=== PATIENT | male | born 1945 | race Caucasian/White ===

== ENCOUNTER → 2020-04-13 | Outpatient (CLI) | payer MEDICARE ==
[~2020-04-13] MED LIST: APIX5TAB PO; METO25TA35 PO
== END | disposition home or self-care (01) ==
LOC: CFH 10:00
PROVIDERS: ATTEND Internal Medicine Cardiovascular Disease
DX: I08.3 Combined rheumatic disorders of mitral, aortic and tricuspid valves (principal); Z85.828 Personal history of other malignant neoplasm of skin; Z79.01 Long term (current) use of anticoagulants
CPT/HCPCS: 93306

== ENCOUNTER 2021-04-23 10:33 | Day surgery (SDC) | payer MEDICARE, OTHER ==
[2021-04-23] MEDS ORDERED: SODIUM CHLORIDE FLUSH 10ML SYR IVF SCH (11:00)
[2021-04-23] MEDS ORDERED: NYST1000 PO (11:17)
[2021-04-23] MEDS ORDERED: LEVO25TA4 PO (11:17)
[2021-04-23] MEDS ORDERED: ROSU5TAB PO (11:17)
[2021-04-23 11:22] LABS: ANION GAP 7 mmol/L (5-15); CALCIUM 8.9 mg/dL (8.5-10.1); CHLORIDE 110 mmol/L (98-107); CREATININE 0.92 mg/dL (0.7-1.3)
[2021-04-23] MEDS ORDERED: PLEASE ENTER HEIGHT AND WEIGHT MC SCH (11:30)
[2021-04-23] MEDS ORDERED: METO25TA91 PO (12:57)
[2021-04-25] MEDS ORDERED: PROPOFOL 10 MG/ML, 20ML ONE (17:37)
== END 2021-04-23 13:47 | disposition home or self-care (01) ==
LOC: CACL 10:33
PROVIDERS: ATTEND Internal Medicine Cardiovascular Disease
DX: I48.92 Unspecified atrial flutter (principal); I48.0 Paroxysmal atrial fibrillation; I42.8 Other cardiomyopathies; E78.2 Mixed hyperlipidemia; Z91.011 Allergy to milk products; Z91.018 Allergy to other foods; Z79.899 Other long term (current) drug therapy; Z72.89 Other problems related to lifestyle; Z79.01 Long term (current) use of anticoagulants; Z98.890 Other specified postprocedural states
CPT/HCPCS: 36415; 80048; 92960; 93005; J2704

== ENCOUNTER 2021-05-31 06:28 | Day surgery (SDC) | payer MEDICARE, OTHER ==
[~2021-05-31 06:28] MED LIST changes: +LEVO25TA4 PO; +METO25TA91 PO; +NYST1000 PO; +ROSU5TAB PO
[2021-05-31 07:15] VITALS: BP 139/76
[2021-05-31] MEDS ORDERED: METO25TA91 PO (07:20)
[2021-05-31] MEDS ORDERED: FLEC100T PO (07:20)
[2021-05-31] MEDS ORDERED: DIGO125T85 PO (07:22)
[2021-05-31 07:34] LABS: BASOPHILS % (AUTO) 1 % (0-1); EOSINOPHILS % (AUTO) 6 % (1-7); LYMPHOCYTES % (AUTO) 21 % (22-44); MEAN CORPUSCULAR HEMOGLOBIN 29.4 pg (27.5-34.5); MEAN CORPUSCULAR HGB CONC 33.6 g/dL (33.2-36.2); MONOCYTES % (AUTO) 14 % (2-9); NEUTROPHILS % (AUTO) 58 % (42-75); PLATELET COUNT 202 x10^3/uL (130-400)
[2021-05-31 07:48] LABS: ANION GAP 4 mmol/L (5-15); CALCIUM 8.6 mg/dL (8.5-10.1); CHLORIDE 110 mmol/L (98-107); CREATININE 0.93 mg/dL (0.7-1.3)
[2021-05-31] MEDS ORDERED: PROPOFOL 10 MG/ML, 20ML ONE (11:21)
== END 2021-05-31 08:43 | disposition home or self-care (01) ==
LOC: CACL 06:28
PROVIDERS: ATTEND Internal Medicine Cardiovascular Disease
DX: I48.92 Unspecified atrial flutter (principal); I42.8 Other cardiomyopathies; E03.9 Hypothyroidism, unspecified; E78.2 Mixed hyperlipidemia; Z79.899 Other long term (current) drug therapy; Z79.01 Long term (current) use of anticoagulants; Z98.890 Other specified postprocedural states
CPT/HCPCS: 36415; 80048; 85025; 92960; 93005; J2704

== ENCOUNTER 2021-07-22 11:06 | Day surgery (SDC) | payer MEDICARE, OTHER ==
[~2021-07-22] VITALS: Ht 177.8 cm; Wt 62.3 kg
[~2021-07-22 11:06] MED LIST changes: +DIGO125T85 PO; +FLEC100T PO
[2021-07-22 11:50] VITALS: BP 129/59
[2021-07-22] MEDS ORDERED: SODIUM CHLORIDE 0.9% 1,000 ML IV SCH (12:00)
[2021-07-22 12:28] LABS: BASOPHILS % (AUTO) 1 % (0-1); EOSINOPHILS % (AUTO) 3 % (1-7); LYMPHOCYTES % (AUTO) 24 % (22-44); MEAN CORPUSCULAR HGB CONC 33.5 g/dL (33.2-36.2); MEAN PLATELET VOLUME 7.8 fL (7.4-10.4); MONOCYTES % (AUTO) 14 % (2-9); NEUTROPHILS % (AUTO) 59 % (42-75); PLATELET COUNT 213 x10^3/uL (130-400); RED BLOOD COUNT 5.41 x10^6/uL (4.38-5.82)
[2021-07-22 12:39] LABS: ALANINE AMINOTRANSFERASE 43 U/L (12-78); ALBUMIN 3.9 g/dL (3.4-5.0); ANION GAP 7 mmol/L (5-15); CALCIUM 8.9 mg/dL (8.5-10.1); CHLORIDE 106 mmol/L (98-107); CREATININE 0.96 mg/dL (0.7-1.3); INTERNATIONAL NORMALIZED RATIO 1.16 (0.93-1.1); PROTHROMBIN TIME 12.3 Seconds (9.6-11.5)
[2021-07-22 12:42] LABS: ALKALINE PHOSPHATASE 52 U/L (45-117); BILIRUBIN,TOTAL 0.8 mg/dL (0.2-1.0); TOTAL PROTEIN 7.4 g/dL (6.4-8.2)
[2021-07-22] MEDS ORDERED: LIDOCAINE 2%, 20ML ONE (12:47)
[2021-07-22] MEDS ORDERED: FENTANYL PF 250 MCG/5ML ONE (12:53)
[2021-07-22] MEDS ORDERED: EPHEDRINE 50 MG/ML, 1ML IVPush PRN (14:30)
[2021-07-22] MEDS ORDERED: ONDANSETRON 2MG/ML, 2ML IVPush PRN (14:30)
[2021-07-22] MEDS ORDERED: OXYcodone 5 MG/5 ML ORAL.SOL UDC PO PRN (14:30)
[2021-07-22] MEDS ORDERED: EPHEDRINE 50 MG/ML, 1ML IM PRN (14:30)
[2021-07-22] MEDS ORDERED: morphine SULFATE 10 MG/ML, 1ML IVPush PRN (14:30)
[2021-07-22] MEDS ORDERED: DIAZEPAM 5 MG/ML, 2ML IVPush PRN (14:30)
[2021-07-22] MEDS ORDERED: MEPERIDINE/PF 25MG/0.5ML IVPush PRN (14:30)
[2021-07-22] MEDS ORDERED: FENTANYL PF 100 MCG/2ML IV PRN (14:30)
[2021-07-22] MEDS ORDERED: ACETAMINOPHEN 325 MG TABLET PO PRN (14:30)
[2021-07-22] MEDS ORDERED: LABETALOL 5MG/ML, 20ML IV PRN (14:30)
[2021-07-22] MEDS ORDERED: PROMETHAZINE 25 MG/ML, 1ML IVPush PRN (14:30)
[2021-07-22] MEDS ORDERED: DIPHENHYDRAMINE 50 MG/ML, 1ML IVPush PRN (14:30)
[2021-07-22] MEDS ORDERED: ROCURONIUM 10MG/ML,5ML ONE (14:46)
[2021-07-22] MEDS ORDERED: PROPOFOL 10 MG/ML, 20ML ONE ×2 (14:46)
[2021-07-22] MEDS ORDERED: DEXAMETHASONE 4 MG/ML, 1ML ONE (14:46)
[2021-07-22] MEDS ORDERED: ONDANSETRON 2MG/ML, 2ML ONE (14:46)
[2021-07-22] MEDS ORDERED: SUCCINYLCHOLINE 20 MG/ML, 10ML ONE (14:46)
[2021-07-22] MEDS ORDERED: EPHEDRINE 50 MG/ML, 1ML ONE (15:19)
[2021-07-22 17:24] VITALS: BP 116/71
== END 2021-07-22 21:16 | disposition home or self-care (01) ==
LOC: CACL 11:06 → 5SO 17:18 → CACL 21:16
PROVIDERS: ATTEND Internal Medicine Clinical Cardiac Electrophysiology
DX: I48.92 Unspecified atrial flutter (principal); Z20.822 Contact with and (suspected) exposure to COVID-19; Z79.899 Other long term (current) drug therapy; Z91.011 Allergy to milk products; Z91.018 Allergy to other foods
CPT/HCPCS: 36415; 71046; 80053; 85025; 85610; 93005; 93613; 93653; C1730; C1766; C1894; C2630; J0330; J1100; J2405; J2704; J3010; U0003; U0005; G0378